=== PATIENT | female | born 1980 | race Caucasian/White ===

== ENCOUNTER → 2016-07-01 | Outpatient (CLI) | payer BC ==
--- NOTE | 2016-07-02 08:54 | WWHP ---
DATE OF SERVICE: 07/01/2016 CHIEF COMPLAINT: Patient's here for her routine gynecologic exam and mammogram. HPI: This is a 36-year-old G3, P3 with an LMP of 06/13/2016. Her is status post vasectomy. She states it has been about 6 years since her last pelvic exam. She has been experiencing occasional vulvar burning and irritation without discharge or order. She tried using [id number] yeast infection cream but she continued to have occasional irritation. She has also noticed some discomfort with sexual intercourse for the past 2 months. At times it can feel dry so she has used a lubricant with some improvement. She has also been experiencing pain with orgasm in the left lower quadrant and left pelvic area. Every time she achieves orgasm during the past 2 months. She does not have significant pain at other times but has occasionally noticed some generalized low abdominal discomfort at times as well. PAST MEDICAL HISTORY: Previous cardiac arrhythmia status post heart ablation, which seems to have solved the problem. MEDICATIONS: None. ALLERGIES: No known drug allergies. PAST SURGICAL HISTORY: Cardiac ablation in years ago. Past OB history: 3 vaginal deliveries delivered by myself. 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 Menses are regular every month. SOCIAL HISTORY: She denies tobacco, alcohol, and drug use. 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 FAMILY HISTORY: She has 2 maternal aunts and maternal grandmother who had breast cancer. She has another maternal aunt who had some type of gynecologic cancer but is not sure of the type. Her mother was an alcoholic. REVIEW OF SYSTEMS: She believes she has gained about 20 pounds over the last year and she is not sure if this is related to her new job, which she started about one year ago. RESPIRATORY: She feels like she has gotten more cold and upper respiratory infections during the past year. She currently is without respiratory complaints. She denies cardiac or GI complaints. PHYSICAL EXAM: Blood pressure 122/74. Height 5 feet 4 inches. Weight 250 pounds. Temperature 97.9, pulse 94. This a well-developed, heavyset white female who is alert and oriented x3 in no acute distress. HEENT is within normal limits. NECK: Supple without mass or thyromegaly. CHEST AND LUNGS: Clear to auscultation. HEART: Regular rate and rhythm. Breasts are without mass or discharge. Axillary exam is negative for adenopathy. BACK: Negative for CVA tenderness. ABDOMEN: Mildly obese, soft, nontender, without palpable masses. PELVIC EXAM: External genitalia reveals mild generalized erythema without focal lesions. Cervix and vagina appear normal. There is no unusual discharge. There is no cervical motion tenderness. The uterus is midposition, multiparous, nongravid size and nontender. There are no palpable adnexal masses. There is minimal left adnexal tenderness without palpable mass. There is no right-sided tenderness. Rectovaginal exam is negative for mass or tenderness. EXTREMITIES: Nontender. IMPRESSION: 1. A 36-year-old female, whose is status post vasectomy. 2. Nonspecific vulvar irritation with intermittent burning without evidence of vaginitis at this time. 3. Dyspareunia consisting of pain during orgasm which is mostly located in the left pelvic area with minimal tenderness and otherwise unremarkable exam, differential diagnosis will include ovarian mass as well as possible uterine enlargement. PLAN: 1. Pap smear was performed. 2. Self-breast examination was discussed. 3. Mammogram will be done today because of her family history of breast cancer. 4. Pelvic ultrasound will be scheduled. 5. Kenalog 0.1% cream b.i.d. to the vulvar area p.r.n. 6. She will also return in one year and p.r.n.
--- NOTE | 2016-07-02 09:18 | MM ---
Reason for exam: screening (asymptomatic). Last mammogram was performed 8 years and 4 months ago. History: Family history of breast cancer in grandmother and premenopausal breast cancer in aunt. Took hormonal contraceptives for 5 years beginning at age 17. Physical Findings: A clinical breast exam by your physician is recommended on an annual basis and results should be correlated with mammographic findings. MG Screening Mammo w CAD Bilateral CC and MLO view(s) were taken. Prior study comparison: February 24, 2008, bilateral diagnostic digital mammog. There are scattered fibroglandular densities. Asymmetry on left MLO toward left axilla. ASSESSMENT: Incomplete: need additional imaging evaluation, BI-RAD 0 RECOMMENDATION: Special view mammogram of the left breast. If lesion persists on supplemental views, image directed ultrasound is recommended. [facility] will attempt to contact patient to return for supplemental views and ultrasound if indicated.
== END | disposition home or self-care (01) ==
LOC: WWCWWP 15:21
PROVIDERS: ATTEND Obstetrics & Gynecology
DX: Z12.31 Encounter for screening mammogram for malignant neoplasm of breast (principal)

== ENCOUNTER → 2016-07-03 | Outpatient (CLI) | payer BC ==
--- NOTE | 2016-07-03 10:10 | MM ---
Reason for exam: additional evaluation requested from abnormal screening. Last mammogram was performed less than 1 month ago. History: Family history of breast cancer in grandmother and premenopausal breast cancer in aunt. Took hormonal contraceptives for 5 years beginning at age 17. Physical Findings: Nurse did not find any significant physical abnormalities on exam. MG Work Up Mamm w CAD LT ML, XCCL, and spot compression MLO view(s) were taken of the left breast. Prior study comparison: July 01, 2016, bilateral MG screening mammo w CAD. February 24, 2008, bilateral diagnostic digital mammog. No worrisome new lesion persists on additional views. These results were verbally communicated with the patient and result sheet given to the patient on 07/03/16. ASSESSMENT: Negative, BI-RAD 1 RECOMMENDATION: Return to routine screening mammogram schedule for both breasts.
== END | disposition home or self-care (01) ==
LOC: RADMAMWWP 08:54
PROVIDERS: ATTEND Obstetrics & Gynecology
DX: R92.8 Other abnormal and inconclusive findings on diagnostic imaging of breast (principal)

== ENCOUNTER → 2017-11-03 | Outpatient (CLI) | payer BC ==
[2017-11-03 15:36] VITALS: BP 122/67; PULSE 82; TEMP 97.2; BMI 40.8
--- NOTE | 2017-11-03 16:12 | P.HPOB ---
History of Present Illness H&P Date: 11/03/17 Chief Complaint: The patient is here for her routine gynecologic exam and mammogram. This is a 37-year-old 3 PIII with an LMP of 11/02/2017. The patient's ' s status post vasectomy. Last year she began having left pelvic pains with orgasm. Pelvic ultrasound was done which did not show cause for the this type of pain. She states she occasionally notices this, but not every time. She is otherwise without complaints. She cannot think of any activity or position that the pain with orgasm is associated with. Review of Systems She has lost about 12 pounds over the last year. She denies respiratory, cardiac, or G.I. problems. Past Medical History Past Medical History: Supraventricular Tachycardia (SVT) Additional Past Medical History / Comment(s): Cardiac arrhythmia improved following heart ablation. 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 - Past Family History Mother Additional Family Medical History / Comment(s): Alcoholic. 2 maternal aunts and a maternal grandmother had breast cancer Medications and Allergies Home Medications Medication Instructions Recorded Confirmed Type buPROPion [Wellbutrin] mg PO DAILY 11/03/17 History Allergies Allergy/AdvReac Type Severity Reaction Status Date / Time No Known Allergies Allergy Unverified 11/03/17 15:29 Exam Vital Signs Temp Pulse BP 11/03/17 15:31 97.2 F L 82 122/67 Intake and Output 11/03/17 11/03/17 11/03/17 06:59 14:59 22:59 Other: Weight 107.955 kg Height 5'4", BMI 40.9. This is a well-developed well-nourished heavyset white female who is alert and oriented times 3 in no acute distress. HEENT: Within normal limits. NECK: Supple without mass or thyromegaly. CHEST AND LUNGS: Clear to auscultation. HEART: Regular rate and rhythm. BREASTS: Are without mass or discharge. AXILLARY EXAM: Negative for adenopathy. BACK: Negative for CVA tenderness. ABDOMEN: Soft, nontender, without palpable masses. PELVIC EXAM: Normal external genitalia. Cervix and vagina appear normal. There is no unusual discharge. There is no evidence of prolapse. The uterus is midposition, nongravid size and nontender. There are no palpable adnexal masses or tenderness. RECTAL EXAM: rectovaginal exam is negative for mass or tenderness and is negative for occult blood. EXTREMITIES: Nontender. IMPRESSION: 1. 37-year-old female with normal gynecologic exam. 2. Intermittent left pelvic discomfort with orgasm. There are no significant physical findings at this time and pelvic ultrasound done one year ago did not show any cause for these symptoms. 3. Strong family history of breast cancer in 3- 2nd degree relatives. PLAN: 1. Pap smear was deferred since she had a normal one last year. 2. Off breast awareness was discussed. 3. Screening mammogram will be done today because of her strong family history. 4. Osteoporosis prevention was discussed. 5. She will try to determine if there are any activities or factors that seem to be associated with the pain she has with orgasm. She will call if this is worsening or becoming more frequent. 6. She will return in one year and PRN.
--- NOTE | 2017-11-05 09:54 | MM ---
Reason for exam: screening (asymptomatic). Last mammogram was performed 1 year and 4 months ago. History: Family history of breast cancer in grandmother and premenopausal breast cancer in aunt. Took hormonal contraceptives for 5 years beginning at age 17. Physical Findings: A clinical breast exam by your physician is recommended on an annual basis and results should be correlated with mammographic findings. MG 3D Screening Mammo W/Cad Bilateral CC and MLO view(s) were taken. Prior study comparison: July 03, 2016, left breast MG work up mamm w CAD LT. July 01, 2016, bilateral MG screening mammo w CAD. There are scattered fibroglandular densities. No significant changes when compared with prior studies. ASSESSMENT: Negative, BI-RAD 1 RECOMMENDATION: Routine screening mammogram of both breasts at age 39.
== END | disposition home or self-care (01) ==
LOC: WWCWWP 15:21
PROVIDERS: ATTEND Obstetrics & Gynecology
DX: Z12.31 Encounter for screening mammogram for malignant neoplasm of breast (principal)
CPT/HCPCS: 77063; 77067

== ENCOUNTER → 2019-01-14 | Outpatient (CLI) | payer BC ==
--- NOTE | 2019-01-14 10:30 | US ---
EXAMINATION TYPE: US abdomen complete DATE OF EXAM: 01/14/2019 COMPARISON: NONE CLINICAL HISTORY: R10.10 upper abd pain. Pt states a feeling of bulge and pressure midline/left ABD EXAM MEASUREMENTS: Liver Length: 16.0 cm Gallbladder Wall: 0.2 cm CBD: 0.3 cm Spleen: 10.5 cm Right Kidney: 11.4 x 4.2 x 4.3 cm Left Kidney: 10.5 x 4.8 x 5.2 cm Pancreas: wnl, tail obscured by overlying bowel gas Liver: wnl Gallbladder: wnl Evidence for sonographic Alexander's sign: No CBD: wnl Spleen: wnl Right Kidney: wnl Left Kidney: wnl Upper IVC: wnl Abd Aorta: wnl In pt's area midline/left where she feels pressure and bulge, no abnormality visualized and no evid ence of ABD wall break on multiple valsalva attempts The liver is homogenous. The intrahepatic portion of the IVC and proximal abdominal aorta are within normal limits. There is no evidence of cholelithiasis. Common bile duct is unremarkable. The visu alized portions of the pancreas are homogenous. The spleen is unremarkable. Kidneys are symmetric a nd free of hydronephrosis. No renal lesions are seen. IMPRESSION: Unremarkable abdominal ultrasound other than obscuration of the pancreas by overlying bow el gas. No break in the abdominal wall with Valsalva to suggest abdominal wall hernia on ultrasound.
== END | disposition home or self-care (01) ==
LOC: RADUSWWP 08:19
PROVIDERS: ATTEND Family Medicine
DX: R10.10 Upper abdominal pain, unspecified (principal)
CPT/HCPCS: 76700

== ENCOUNTER 2020-07-25 22:12 | Emergency (ER) | payer BC ==
[2020-07-25 23:22] LABS: Basophils % (A) 1 %; Eosinophils # (A) 0.2 k/uL (0-0.7); Eosinophils % (A) 3 %; Lymphocytes # (A) 2.4 k/uL (1.0-4.8); Lymphocytes % (A) 31 %; MCH 30.9 pg (25.0-35.0); MCHC 36.1 g/dL (31.0-37.0); MCV 85.4 fL (80.0-100.0); Mean Platelet Volume 7.3; Monocytes # (A) 0.7 k/uL (0-1.0); Monocytes % (A) 8 %; Neutrophils # (A) 4.4 k/uL (1.3-7.7); Neutrophils % (A) 56 %; Platelet Count 275 k/uL (150-450); RBC 4.22 m/uL (3.80-5.40); RDW 12.8 % (11.5-15.5); WBC 7.8 k/uL (3.8-10.6)
[2020-07-25 23:35] LABS: INR 0.9 (<1.2); Partial Thromboplastin Time 23.8 sec (22.0-30.0); Prothrombin Time 9.9 sec (9.0-12.0)
--- NOTE | 2020-07-25 23:35 | XR ---
EXAMINATION TYPE: XR chest 2V DATE OF EXAM: 07/25/2020 COMPARISON: NONE HISTORY: Chest pain TECHNIQUE: FINDINGS: Heart and mediastinum are normal. Lungs are clear. Diaphragm is normal. Bony thorax appears normal. IMPRESSION: Normal chest.
[2020-07-25 23:52] LABS: ALT 20 U/L (4-34); AST 24 U/L (14-36); African American GFR (CKD) >90 (>60 ml/min/1.73 sqM); Albumin 4.4 g/dL (3.5-5.0); Alkaline Phosphatase 79 U/L (38-126); Anion Gap 10 mmol/L; Blood Urea Nitrogen 16 mg/dL (7-17); Calcium 9.3 mg/dL (8.4-10.2); Carbon Dioxide 27 mmol/L (22-30); Chloride 100 mmol/L (98-107); Glucose 91 mg/dL (74-99); Magnesium 1.9 mg/dL (1.6-2.3); Non-African American GFR(CKD) >90 (>60 ml/min/1.73 sqM); Potassium 4.3 mmol/L (3.5-5.1); Sodium 137 mmol/L (137-145); Total Bilirubin 1.1 mg/dL (0.2-1.3); Total Protein 7.5 g/dL (6.3-8.2)
--- NOTE | 2020-07-26 00:48 | ED ---
Chest Pain HPI - General Chief Complaint: Chest Pain Stated Complaint: chest & shoulder pain Time Seen by Provider: 07/25/20 22:15 Source: patient Mode of arrival: ambulatory Limitations: no limitations - History of Present Illness Initial Comments: 30-year-old female presents emergency room with reported chest pain or shortness of breath which started 1 hour prior to hospital arrival. Patient has a history of SVT with cardiac ablation. States this was greater than 10 years ago and has not had any issues since. He is to see Dr. Rojo however now resolved with her primary care doctor. Reports to left-sided chest pain which radiates into her left arm. Describes it as a sharp shooting sensation. Denies cough, fevers or chills. No nausea or vomiting. Denies previous history of cardiac disease. No family history of sudden cardiac . No history of DVT or PE. No calf pain or swelling. No other alleviating, precipitating or modifying factors. - Related Data Previous Rx's Medication Instructions Recorded valACYclovir HCL 1,000 mg PO BID 8 Days #16 tab 07/31/20 valACYclovir [Valtrex] 500 mg PO BID 3 Days #6 tab 08/08/20 Allergies Allergy/AdvReac Type Severity Reaction Status Date / Time No Known Allergies Allergy Verified 07/31/20 12:47 Review of Systems ROS Statement: Those systems with pertinent positive or pertinent negative responses have been documented in the HPI. ROS Other: All systems not noted in ROS Statement are negative. EKG Findings - EKG Comments: EKG Findings:: EKG demonstrates a sinus rhythm with a ventricular rate of 89. GA interval 168. QRS 74. QTC 445. No acute ST segment elevations or depressions Past Medical History Past Medical History: Supraventricular Tachycardia (SVT) Additional Past Medical History / Comment(s): Cardiac arrhythmia improved following heart ablation. 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 covid 19 06/27/20 History of Any Multi-Drug Resistant Organisms: None Reported Past Surgical History: Ablation Past Psychological History: No Psychological Hx Reported Smoking Status: Never smoker Past Alcohol Use History: None Reported Past Drug Use History: None Reported - Past Family History Mother Additional Family Medical History / Comment(s): Alcoholic. 2 maternal aunts and a maternal grandmother had breast cancer General Exam Limitations: no limitations General appearance: alert, in no apparent distress Head exam: Present: atraumatic, normocephalic, normal inspection Eye exam: Present: normal appearance, PERRL, EOMI. Absent: scleral icterus, conjunctival injection, periorbital swelling ENT exam: Present: normal exam, mucous membranes moist Neck exam: Present: normal inspection. Absent: tenderness, meningismus, lymphadenopathy Respiratory exam: Present: normal lung sounds bilaterally. Absent: respiratory distress, wheezes, rales, rhonchi, stridor Cardiovascular Exam: Present: regular rate, normal rhythm, normal heart sounds. Absent: systolic murmur, diastolic murmur, rubs, gallop, clicks GI/Abdominal exam: Present: soft, normal bowel sounds. Absent: distended, tenderness, guarding, rebound, rigid Extremities exam: Present: normal inspection, full ROM, normal capillary refill. Absent: tenderness, pedal edema, joint swelling, calf tenderness Back exam: Present: normal inspection Neurological exam: Present: alert, oriented X3, CN II-XII intact Psychiatric exam: Present: normal affect, normal mood Skin exam: Present: warm, dry, intact, normal color. Absent: rash Course Vital Signs 07/25/20 07/26/20 22:15 01:22 Temperature 98.0 F 98.5 F Pulse Rate 98 88 Respiratory 20 16 Rate Blood Pressure 126/80 118/65 O2 Sat by Pulse 100 100 Oximetry Chest Pain MDM - MDM Upon arrival patient is placed into room 18. There are history of physical exam is performed. IV is established. Laboratory studies were conducted. 12-lead EKG was performed. Laboratory studies revealed. D-dimer 0.35. Troponin is negative. 12-lead EKG demonstrates a sinus rhythm. Chest x-ray demonstrates no acute process. Results are discussed with the patient. Reports to improvement in her pain at this time. I did discuss diagnosis, differential and treatment options. Patient comfortable for discharge home at this time. Instructed to follow-up with her primary care doctor. He recommended echo. Return to the emergency room for any new or worsening symptoms prior patient was in agreement with the treatment plan and discharged home in stable condition Disposition Clinical Impression: Chest pain Disposition: HOME SELF-CARE Condition: Stable Instructions (If sedation given, give patient instructions): Chest Pain (ED) Additional Instructions: Please follow up with your PCP in 2-4 days. I recommend you have an echo of your heart. Return to the ED for any new or worsening symptoms Is patient prescribed a controlled substance at d/c from ED?: No Referrals: Giancarlo Armstrong DO [Primary Care Provider] - 1-2 days [facility] [Provider Group] - 1-2 days Time of Disposition: 00:47
[2020-07-26 01:27] VITALS: BP 118/65; PULSE 88; RESP 16; TEMP 98.5
== END 2020-07-26 01:36 | disposition home or self-care (01) ==
LOC: EC 22:12
DX: R07.9 Chest pain, unspecified (principal)
CPT/HCPCS: 36415; 71046; 80053; 83735; 84484; 85025; 85379; 85610; 85730; 93005; 99285

== ENCOUNTER → 2020-07-31 | Outpatient (CLI) | payer BC ==
[2020-07-31 12:52] VITALS: BP 121/82; PULSE 78; RESP 16; TEMP 98.2
--- NOTE | 2020-07-31 14:01 | P.HPOB ---
History of Present Illness H&P Date: 07/31/20 Chief Complaint: The patient is here for her routine gynecologic exam. This is a 40-year-old with an LMP of 07/06/2020. The patient has been experiencing vulvar irritation and blisters since last week. About 6 days ago she feels like a blister popped and there was blood noted. If continues to lose a small amount of blood. She has noticed them on both sides thinks they may a blood blisters. They have been painful and she also notices she has been very tired and not feeling well in general. She thought that some of these symptoms were related to getting over COVID which she had a month ago. She does not have a history of genital herpes, but she and her both have had oral cold sores in the past. The irritation has made it uncomfortable with sexual intercourse. She has had some issues with recurring yeast infections in the past, but has not had any since she had one 6 months ago. She does not think she has had many genital herpes outbreaks in the past, but may have had some pimple-type lesions in the past. She denies any typical urinary tract infection symptoms such as urinary frequency or dysuria. She is in a monogamous relationship and has been since her marriage in 1998. She believes she and her have had other sexual partners prior to their marriage in 1998. Review of Systems The patient has lost 8 pounds over the last 2 years. She denies respiratory, cardiac, or G.I. problems. : See HPI. Past Medical History Past Medical History: Supraventricular Tachycardia (SVT) Additional Past Medical History / Comment(s): Cardiac arrhythmia improved following heart ablation. 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 covid 19- 06/27/20 History of Any Multi-Drug Resistant Organisms: None Reported Past Surgical History: Ablation Additional Past Surgical History / Comment(s): Cardiac ablation for arrhythmia. 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 - Past Family History Mother Additional Family Medical History / Comment(s): Alcoholic. 2 maternal aunts and a maternal grandmother had breast cancer. A maternal aunt had cervical cancer. Medications and Allergies Home Medications Medication Instructions Recorded Confirmed Type No Known Home Medications 07/25/20 07/31/20 History Allergies Allergy/AdvReac Type Severity Reaction Status Date / Time No Known Allergies Allergy Verified 07/31/20 12:47 Exam Vital Signs Temp Pulse Resp BP Pulse Ox 07/31/20 12:47 98.2 F 78 16 121/82 100 Intake and Output 07/30/20 07/31/20 07/31/20 22:59 06:59 14:59 Other: Weight 103.419 kg Height 5 feet 4 inches, weight 228 pounds, BMI 39.1. This is a well-developed well-nourished white female who is alert and oriented times 3 in no acute distress. HEENT: Within normal limits. NECK: Supple without mass or thyromegaly. CHEST AND LUNGS: Clear to auscultation. HEART: Regular rate and rhythm. BREASTS: Are without mass or discharge. AXILLARY EXAM: Negative for adenopathy. BACK: Negative for CVA tenderness. ABDOMEN: Soft, nontender, without palpable masses. PELVIC EXAM: External genitalia reveals an ulcerated lesion on the left labia majora on the inner side. There is some peripheral erythema and is mildly tender. Near the area of the ulceration, there is small pinpoint petechiae the ulcerated lesion is not draining and is slightly moist. There is mild generalized vulvar erythema. Cervix and vagina appear normal. There is no cervical motion tenderness. There is no unusual discharge. There is no evidence of prolapse. The uterus is midposition, nongravid size and nontender. There are no palpable adnexal masses or tenderness. RECTAL EXAM: negative for mass or tenderness and is negative for occult blood. EXTREMITIES: Nontender. IMPRESSION: 1. 40-year-old female whose is status post vasectomy with 1 week history of vulvar blisters and an ulcerated lesion is noted on the left labia majora. The findings are suspicious for genital HSV. Differential diagnosis will include primary genital HSV, recurrent genital HSV or vulvar findings from scratching or pinching of the skin. 2. Symptoms such as fatigue and malaise may be related to genital HSV but could also be residual from her diagnosis of Covid which was made in early June 2020. PLAN: 1. Pap smear cotest was performed. 2. Self breast awareness was discussed with the patient. 3. We have had a long discussion regarding the vulvar blisters and ulceration. She is aware that I feel this is suspicious for genital HSV. The ACOG FAQ handout on genital herpes was given to the patient. She understands that if this is genital HSV, this may have resulted from past sexual relationships with either her own past or her 's past. She also understands that oral cold sores can be transmitted to the genital area as well. Valtrex 1000 mg by mouth every 12 hours 8 days. The electronic prescription will be sent to my her pharmacy in [place]. HSV testing was obtained from the ulcerated lesion. She understands that a negative test does not completely rule out genital HSV since this may have been passed the time of viral shedding. When I call her with the results and we'll see how she is doing and then consider treatment for possible recurrent lesions with Valtrex 500 mg every 12 hours 3 days which can be started at the onset of an outbreak. 4. She was advised to return in one year for her annual well woman exam and as needed. 5. []
== END | disposition home or self-care (01) ==
LOC: WWCWWP 12:29
PROVIDERS: ATTEND Obstetrics & Gynecology
DX: N76.6 Ulceration of vulva (principal)
CPT/HCPCS: 87529

== ENCOUNTER → 2020-08-07 | Outpatient (CLI) | payer BC ==
--- NOTE | 2020-08-08 08:36 | MM ---
Reason for exam: screening (asymptomatic). Last mammogram was performed 2 years and 9 months ago. History: Family history of breast cancer in grandmother and premenopausal breast cancer in aunt. Took hormonal contraceptives for 5 years beginning at age 17. Physical Findings: A clinical breast exam by your physician is recommended on an annual basis and results should be correlated with mammographic findings. MG 3D Screening Mammo W/Cad Bilateral CC and MLO view(s) were taken. Prior study comparison: November 03, 2017, bilateral MG 3d screening mammo w/cad. July 03, 2016, left breast MG work up mamm w CAD LT. The breast tissue is heterogeneously dense. This may lower the sensitivity of mammography. There is no discrete abnormality. No significant changes when compared with prior studies. ASSESSMENT: Negative, BI-RAD 1 RECOMMENDATION: Routine screening mammogram of both breasts in 1 year.
== END | disposition home or self-care (01) ==
LOC: RADMAMWWP 13:52
PROVIDERS: ATTEND Obstetrics & Gynecology
DX: Z12.31 Encounter for screening mammogram for malignant neoplasm of breast (principal); Z80.3 Family history of malignant neoplasm of breast
CPT/HCPCS: 77063; 77067

== ENCOUNTER → 2020-10-11 | Outpatient (CLI) | payer BC ==
--- NOTE | 2020-10-11 08:55 | FL ---
EXAMINATION TYPE: FL barium swallow DATE OF EXAM: 10/11/2020 CLINICAL HISTORY: Dysphasia TECHNIQUE: A double contrast esophagram is performed utilizing air and barium. Crystals were given for gaseous distention. A total of 54 seconds of fluoroscopic time was utilized during procedure and multiple images obtained. COMPARISON: None FINDINGS: The esophagus shows normal motility and emptying into the stomach. No evidence of hiatal h ernia or stricture noted. No significant gastroesophageal reflux was seen during real time performanc e of this study. IMPRESSION: Unremarkable double contrast barium esophagram.
== END | disposition home or self-care (01) ==
LOC: RADUSWWP 07:47
PROVIDERS: ATTEND Otolaryngology
DX: R47.02 Dysphasia (principal)
CPT/HCPCS: 74220

== ENCOUNTER → 2023-07-29 | Outpatient (CLI) | payer BC ==
--- NOTE | 2023-07-30 08:24 | XR ---
EXAMINATION TYPE: XR lumbosacral spine min 4V DATE OF EXAM: 07/29/2023 8:57 AM CLINICAL INDICATION:Female, 43 years old with history of [id number] DDD; COMPARISON: None TECHNIQUE: XR lumbosacral spine min 4V - Frontal, lateral , bilateral oblique and coned in L5-S1 late ral views of the spine. FINDINGS: No evidence of any acute osseous pathology. No evidence of loss of vertebral body height i s seen. There is normal alignment of the lumbar vertebral bodies. Mild scattered disc space narrowing . Multilevel marginal osteophyte formation throughout the visualized spine. There is facet joint arth ropathy throughout the spine. Scattered at least mild neural foraminal stenosis. IMPRESSION: 1. No acute fracture. 2. Mild multilevel disc degeneration.
== END | disposition home or self-care (01) ==
LOC: RADXRYALE 08:43
PROVIDERS: ATTEND Physician Assistant
DX: M51.36 Other intervertebral disc degeneration, lumbar region (principal)
CPT/HCPCS: 72110

== ENCOUNTER → 2023-08-12 | Outpatient (CLI) | payer BC ==
--- NOTE | 2023-08-13 10:14 | MR ---
EXAMINATION TYPE: MR lumbar spine wo con DATE OF EXAM: 08/12/2023 7:44 PM CLINICAL INDICATION:Female, 43 years old with history of M51.36 DISC DEGEN M54.16 RADICULOPATHY R53.1 WEAKN, Low back pain that wraps around to front of right some. COMPARISON: Plain film 07/29/2023. TECHNIQUE: Multi planar, multi sequence imaging was performed utilizing: T1-weighted, T2-weighted, a nd turbo inversion recovery imaging of the lumbar spine. IV Contrast: cc . (None if empty) FINDINGS: Alignment: The lumbar vertebral bodies have preserved heights and alignment. Cord: The conus medullaris and the distal spinal cord appear unremarkable with regards to their signa l intensity and morphology. Bones/Discs: Mild degeneration changes throughout the spine with osteophyte formation and facet joint arthropathy. Intervertebral disc signal is maintained. T12-L1: No evidence of significant spinal canal stenosis or neural foraminal stenosis. L1-L2: No evidence of significant spinal canal stenosis or neural foraminal stenosis. L2-L3: No evidence of significant spinal canal stenosis or neural foraminal stenosis. Trace right fac et joint effusion. L3-L4: No evidence of significant spinal canal stenosis or neural foraminal stenosis. Trace right fac et joint effusion. L4-L5: No evidence of significant spinal canal stenosis. Facet joint arthropathy mild bilateral neura l foraminal stenosis. Trace right facet joint effusion. L5-S1: The disc is rounded posterior morphology without significant spinal canal stenosis. Facet join t arthropathy with mild bilateral neural foraminal stenosis. No significant spinal canal or neural foraminal stenosis in the remainder of the visualized levels. Other findings: Partially in the [id number] right ovarian 25 mm dominant follicle. IMPRESSION: 1. No definitive evidence of disc herniation or significant spinal canal stenosis. 2. Mild disc degeneration with associated osteoarthritic changes. No evidence of significant neural foraminal stenosis. 3. Dominant right ovarian 25 mm, simple appearing follicle.
== END | disposition home or self-care (01) ==
LOC: RADMRIMAIN 18:26
PROVIDERS: ATTEND Family Medicine
DX: M51.16 Intervertebral disc disorders with radiculopathy, lumbar region (principal); M47.26 Other spondylosis with radiculopathy, lumbar region; R53.1 Weakness
CPT/HCPCS: 72148

== ENCOUNTER → 2024-06-28 | Outpatient (CLI) | payer BC ==
--- NOTE | 2024-06-28 10:50 | MM ---
Reason for Exam: Screening (asymptomatic). Last mammogram was performed 2 year(s) and 0 month(s) ago. Patient History: Menarche at age 9. First Full-Term at age 19. Patient has history of breast feeding. Hormonal Contraceptives for 5 years from age 17 until age 26. Maternal grandmother had breast cancer at or over age 50. Maternal aunt had breast cancer under age 50. Risk Values: Toya 5 year model risk: 0.8%. NCI Lifetime model risk: 9.4%. Prior Study Comparison: 11/03/2017 Bilateral Screening Mammogram, [facility]. 08/07/2020 Bilateral Screening Mammogram, [facility]. 06/24/2022 Bilateral MG 3D screening mammo w/cad, [facility]. Tissue Density: There are scattered areas of fibroglandular density. Findings: Analyzed By CAD. Benign-appearing bilateral axillary lymph nodes are redemonstrated. There is no suspicious group of microcalcifications or new suspicious mass in either breast. Overall Assessment: Negative, BI-RAD 1 Management: Screening Mammogram of both breasts in 1 year. . Patient should continue monthly self-breast exams. A clinical breast exam by your physician is recommended on an annual basis. This exam should not preclude additional follow-up of suspicious palpable abnormalities. Note on Toya scores and lifetime risk: 1. A Toya score greater than 3% is considered moderate risk. If this is the case, consider specialist referral to assess eligibility for a risk reducing agent. 2. If overall lifetime risk for the development of breast cancer is 20% or higher, the patient may qualify for future screening with alternating mammogram and breast MRI. [facility], , 06/28/2024 10:48 AM. Electronically signed and approved by: Blaise Gomes M.D.
[2024-06-28 11:31] VITALS: BP 139/90; PULSE 86; RESP 16; TEMP 98.1
--- NOTE | 2024-06-28 12:24 | P.HPOB ---
History of Present Illness H&P Date: 06/28/24 Chief Complaint: The patient is here for her routine gynecologic exam and ma mmogram. This is a 44-year-old with an LMP of 06/11/2024. The patient's is status post vasectomy. The patient has noticed some menstrual changes since about November 2023. She continues to have about monthly menstrual flow, but she also developed intermenstrual light bleeding and spotting most days of the month. The menstrual type flow had been about monthly until this month. She h ad a fairly normal menstrual flow on 05/23/2024. She again started bleeding on 06/11/2024 which was very heavy and this flow did decrease slightly, but she still has some bleeding today. Her LMP was very heavy and had to change her protection about every 1-2 hours. Typically she has 1 heavy day during her menstrual cycle and on those days she typically changes the protection about every 2-3 hours. She denies any significant changes in cramping or pain. She does occasionally feel warm but denies significant hot flashes. Review of Systems The patient has lost 6 pounds over the last year. She has been trying to lose weight with diet and exercise. She denies respiratory, cardiac, or G.I. problems. Past Medical History Past Medical History: Osteoarthritis (OA), Supraventricular Tachycardia (SVT) Additional Past Medical History / Comment(s): Cardiac arrhythmia improved following heart ablation. Past [employer] history: no history of STDs. History of Any Multi-Drug Resistant Organisms: None Reported Past Surgical History: Ablation Additional Past Surgical History / Comment(s): Cardiac ablation for arrhythmia. Colonoscopy 2020. 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 - Past Family History Mother Additional Family Medical History / Comment(s): Alcoholic. 2 maternal aunts and a maternal grandmother had breast cancer Medications and Allergies Home Medications Medication Instructions Recorded Confirmed Type Cholecalciferol (Vitd3)/Vit K2 1 each PO DAILY 06/28/24 06/28/24 History [Vit D3-Vit K2 125-100 Mcg Sfgl] Meloxicam 1 mg PO DAILY 06/28/24 06/28/24 History Naltrexone HCl/Bupropion HCl 1 each PO DAILY 06/28/24 06/28/24 History [Contrave ER 8-90 mg Tablet] valACYclovir HCL [Valtrex] 500 mg PO BID PRN 06/28/24 06/28/24 History Allergies Allergy/AdvReac Type Severity Reaction Status Date / Time No Known Allergies Allergy Verified 06/24/22 12:51 Exam Vital Signs Temp Pulse Resp BP Pulse Ox 06/28/24 11:24 98.1 F 86 16 139/90 99 Intake and Output 06/27/24 06/28/24 06/28/24 22:59 06:59 14:59 Other: Weight 117.027 kg Height 5 feet 4 inches, weight 258 pounds, BMI 44.3. This is a well-developed well-nourished heavyset white female who is alert and oriented times 3 in no acute distress. HEENT: Within normal limits. NECK: Supple without mass or thyromegaly. CHEST AND LUNGS: Clear to auscultation. HEART: Regular rate and rhythm. BREASTS: Are without mass or discharge. AXILLARY EXAM: Negative for adenopathy. BACK: Negative for CVA tenderness. ABDOMEN: Soft, nontender, without palpable masses. PELVIC EXAM: Normal external genitalia. Cervix and vagina appear normal. There is small menstrual blood in the vagina. There is otherwise no unusual discharge. There is no evidence of prolapse. The uterus is midposition, nongravid size and nontender. There are no palpable adnexal masses or tenderness. Bimanual examination is somewhat limited secondary to her size. RECTAL EXAM: Rectovaginal exam is negative for mass or tenderness and is negative for occult blood. EXTREMITIES: Nontender. IMPRESSION: 1. 44-year-old female whose is status post vasectomy with normal gynecologic exam. 2. 7-month history of menorrhagia and dysfunctional uterine bleeding. PLAN: 1. Pap smear cotest was performed. This was done slightly early because of the intermenstrual bleeding which is noticed most days. 2. Self breast awareness was discussed with the patient. We have also discussed symptoms associated with inflammatory breast cancer. 3. Screening mammogram was done today. 4. I have recommended a pelvic ultrasound and an endometrial biopsy. Endometrial biopsy was scheduled for 06/29/2024 at noon. The order slip was given to the patient for the pelvic ultrasound. 5. She will keep a menstrual calendar. If disordered lining or endometrial hyperplasia without atypia is noted from the endometrial biopsy, we will consider cyclic progestin treatment. If persistent abnormal bleeding or endometrial atypia or greater, consider referral for further intervention. 6. If the patient develops extremely heavy bleeding she was instructed to go in through the emergency room for evaluation. 7. Ferrous sulfate 325 mg by mouth daily. 8. As above. She will also return in 1 year for her annual well woman examination and as needed.
== END ==
LOC: WWCWWP 10:18
PROVIDERS: ATTEND Obstetrics & Gynecology
DX: Z12.31 Encounter for screening mammogram for malignant neoplasm of breast (principal); R92.323 Mammographic fibroglandular density, bilateral breasts; Z80.3 Family history of malignant neoplasm of breast
CPT/HCPCS: 77063; 77067

== ENCOUNTER → 2024-06-29 | Day surgery (SDC) | payer BC ==
[2024-06-29 12:21] VITALS: PULSE 85; RESP 16; TEMP 97.1
[2024-06-29 12:52] VITALS: BP 135/93
--- NOTE | 2024-06-29 13:02 | P.PCN ---
Date of Procedure: 06/29/24 Preoperative Diagnosis: Dysfunctional uterine bleeding Postoperative Diagnosis: Dysfunctional uterine bleeding. Procedure(s) Performed: Endometrial biopsy. Anesthesia: none Surgeon: Osvaldo Busby Estimated Blood Loss (ml): 2 Pathology: other (Endometrial tissue) Condition: stable Disposition: same day Indications for Procedure: This was a 44-year-old female whose is status post vasectomy. The patient started having menstrual changes around November 2023 and experienced f requent intermenstrual bleeding. She continued to have menstrual type flow about monthly until this past month when she started about 1-1/2 weeks early and had a very heavy menstrual period that has persisted for about 19 days to the present. Because of the dysfunctional uterine bleeding and menorrhagia, she was scheduled for an endometrial biopsy. Operative Findings: The uterus measured to 9.5 cm. The uterus is multiparous in size and there are no palpable adnexal masses or tenderness. A moderate to large amount of tissue was obtained mixed with blood. Description of Procedure: The procedure was discussed in detail including possible risks and complications. This included possible bowel bleeding, infection, uterine perforation, and damage to surrounding structures. All of her questions were answered. The preprocedure vital signs include blood pressure of 130/82, height 5 feet 4 inches, weight 117 kg, temperature 97.1, pulse of 85 and pulse oximeter 100%. Patient states she did have heavier flow yesterday after her exam, but it is sports medicine physician today. Patient was placed in the lithotomy position. Bimanual examination revealed a multiparous uterus which was nontender. There are no palpable adnexal masses or tenderness. A speculum was inserted into the vagina and the cervix and vagina were prepped with Betadine solution x 3. A 3 mm endometrial biopsy instrument was placed to the fundus without difficulty. The uterus measured 9.5 cm. Negative pressure was applied and a [id number] rotating motion was used. The endometrial biopsy instrument filled quickly and the tissue was placed in the specimen container. The procedure was repeated 2 more times to try to sample different areas of the cavity. The instrument filled quickly with tissue and blood each time. A moderate to large amount of tissue was obtained and sent for pathological evaluation. The patient tolerated the procedure well. Estimate blood loss was 2 mL. Post procedure vitals include blood pressure of 135/93, pulse of 86 and pulse oximeter of 93%. The patient was instructed to abstain from sexual activity for at least 1 week. She can take Tylenol as directed as needed for cramping. She was instructed to call if she has heavy bleeding, unusual pain, lightheadedness, fever, or problems. Her LMP was 06/11/2024 and she continues to have some bleeding since then. She will be started on Provera 10 mg 1 daily starting today and will take this for 12 days. She will plan on taking 1 pill daily on days 19-30 each month. She will keep a menstrual calendar.
--- NOTE | 2024-07-05 13:30 | P.PN ---
Progress Note - Text Progress Note Date: 07/05/24 OUTPATIENT FOLLOW-UP NOTE TEST(S)/RESULTS: Endometrial biopsy pathology from 06/29/2024 revealed disordered lining with glandular hyperplasia without atypia. There was also focal features of a benign polyp. METHOD OF NOTIFICATION: Patient was notified by phone on 07/05/2024 PATIENT COMMENTS: Patient still has had some bleeding while taking the Provera. She started the Provera on 06/30/2024. She will take it for 12 days. DIAGNOSIS: Disordered endometrium with glandular hyperplasia without atypia with features of a benign polyp. DISCUSSION: Cyclic Provera as prescribed for 3 months. She will keep a menstrual calendar. She will call if she is having menstrual problems. She was warned about having a heavier withdrawal bleed especially with the first cycle. She will still have the pelvic ultrasound done as scheduled. She will call if bleeding problems or questions. PLAN: As above. Pap smear cotest is pending as well.
== END ==
LOC: WWCWWP 11:51
PROVIDERS: ATTEND Obstetrics & Gynecology
DX: N92.0 Excessive and frequent menstruation with regular cycle (principal); R59.9 Enlarged lymph nodes, unspecified
CPT/HCPCS: 88305

== ENCOUNTER → 2024-07-12 | Outpatient (CLI) | payer BC ==
--- NOTE | 2024-07-12 16:28 | US ---
EXAMINATION TYPE: US pelvis complete transvag DATE OF EXAM: 07/12/2024 COMPARISON: 2016 CLINICAL INDICATION: Female, 44 years old with history of N950 METRORRHAGIA, UTERINE BLEEDING N938; I rregular menses. TECHNIQUE: Transvaginal (TV) and Transabdominal (TA) . Transabdominal grayscale sonographic images of the pelvis were acquired. Transvaginal sonographic im ages were medically necessary to better assess the following anatomy: Doppler imaging: Not performed. FINDINGS: EXAM MEASUREMENTS: Uterus: 9.9 x 5.3 x 6.3 cm Endometrial Stripe: 2 cm Right Ovary: 3.1 x 2.3 x 2.1 cm 1. Uterus: Anteverted 2. Endometrium: Thickened 3. Right Ovary: Anechoic area seen 2.4 x 1.6 x 1.6 cm. 4. Left Ovary: Obscured by overlying bowel gas 5. Bilateral Adnexa: wnl 6. Posterior cul-de-sac: wnl IMPRESSION: 1. No evidence for acute process. 2. Endometrium slightly thickened correlate for endometrial hyperplasia. [facility], , 07/12/2024 4:25 PM
--- NOTE | 2024-07-13 13:34 | P.PN ---
Progress Note - Text Progress Note Date: 07/13/24 OUTPATIENT FOLLOW-UP NOTE TEST(S)/RESULTS: Pelvic ultrasound done on 07/12/2024 showed no acute process. The endometrium is slightly thickened. Pap smear from 06/28/2024 was negative and the high risk HPV testing is still pending. METHOD OF NOTIFICATION: These results were left on the patient's voicemail on 07/13/2024. PATIENT COMMENTS: DIAGNOSIS: Pelvic ultrasound showing no acute process and slightly thickened endometrium. Negative Pap smear with high risk HPV test pending. DISCUSSION: We will continue with the cyclic Provera as prescribed. If her dysfunctional bleeding persists, we will plan on referring her for hysteroscopy and D&C. Await pending high risk HPV testing PLAN: As above.
== END | disposition home or self-care (01) ==
LOC: RADUSWWP 15:36
PROVIDERS: ATTEND Obstetrics & Gynecology
DX: N95.0 Postmenopausal bleeding (principal); N93.8 Other specified abnormal uterine and vaginal bleeding
CPT/HCPCS: 76830; 76856